=== PATIENT | female | born 1965 | race Hispanic/Latino ===

== ENCOUNTER 2020-07-07 05:54 | Day surgery (SDC) | payer MEDICARE ==
[~2020-07-07] VITALS: Ht 149.9 cm; Wt 181.4 kg
[~2020-07-07 05:54] MED LIST: HYDR-4068 PO; NAPR1TAB28 PO
[2020-07-07] MEDS ORDERED: SODIUM CHLORIDE 0.9% 1000ML 1,000 ML IV ONE (06:17)
[2020-07-07 06:30] VITALS: BP 164/83
[2020-07-07] MEDS ORDERED: ACET-66 PO (06:43)
[2020-07-07] MEDS ORDERED: PROPOFOL 10 MG/ML 20ML VIAL IV ONE (08:06)
[2020-07-07] MEDS ORDERED: LIDOCAINE HCL 1% 20 ML VIAL ONE (08:06)
[2020-07-07 08:20] VITALS: BP 108/74
[2020-07-07 08:25] VITALS: BP 117/76
[2020-07-07 08:30] VITALS: BP 119/80
[2020-07-07 09:00] VITALS: BP 120/90
== END 2020-07-07 09:00 | disposition home or self-care (01) ==
LOC: ENDO 05:54 → DAH 05:54 → ENDO 09:00
PROVIDERS: ATTEND Internal Medicine Gastroenterology
DX: R14.0 Abdominal distension (gaseous) (principal); Z20.822 Contact with and (suspected) exposure to COVID-19; K29.50 Unspecified chronic gastritis without bleeding; K21.9 Gastro-esophageal reflux disease without esophagitis; G47.30 Sleep apnea, unspecified; F41.9 Anxiety disorder, unspecified; E66.01 Morbid (severe) obesity due to excess calories; F32.9 Major depressive disorder, single episode, unspecified; A04.8 Other specified bacterial intestinal infections; Z79.899 Other long term (current) drug therapy; Z98.890 Other specified postprocedural states
CPT/HCPCS: 43239; A4215; A4221; A4222; A4223; A4606; A4620; A4657; A4663; C9803; J2704; J7030; U0003

== ENCOUNTER → 2020-07-09 | Outpatient (CLI) | payer MEDICARE ==
[~2020-07-09] MED LIST changes: +ACET-66 PO
== END | disposition home or self-care (01) ==
LOC: RAH 07:52
PROVIDERS: ATTEND Internal Medicine Gastroenterology
DX: K76.0 Fatty (change of) liver, not elsewhere classified (principal); R10.13 Epigastric pain
CPT/HCPCS: 76700

== ENCOUNTER 2020-07-15 14:03 | Emergency (ER) | payer MEDICARE ==
[2020-07-15] MEDS ORDERED: HYDROCODONE/ACETAMINOPHEN 10/325 MG TAB ONE (14:28)
== END 2020-07-15 18:29 | disposition home or self-care (01) ==
LOC: EDH 14:03
DX: M25.572 Pain in left ankle and joints of left foot (principal); I10 Essential (primary) hypertension; Z88.0 Allergy status to penicillin; W05.0XXA Fall from non-moving wheelchair, initial encounter; Y93.89 Activity, other specified; Y92.89 Other specified places as the place of occurrence of the external cause; Y99.8 Other external cause status
CPT/HCPCS: 73560; 73562; 73610; 73630

== ENCOUNTER 2024-06-02 09:38 | Emergency (ER) | payer MEDICARE ==
[~2024-06-02] VITALS: Ht 149.9 cm; Wt 181.4 kg
[~2024-06-02 09:38] MED LIST changes: +METO-296 PO; +POLY17PO4 PO
--- NOTE | 2024-06-02 09:58 | ERN ---
General Chief Complaint: Abdominal Pain Stated Complaint: ABDOMINAL PAIN Time Seen by MD: 09:41 Source: patient History of Present Illness Initial Comments PATIENT IS A 59-YEAR-OLD FEMALE COMING IN TO BE EVALUATED FOR LEFT FLANK PAIN. PATIENT DOES STATE THAT THE PAIN BEGAN A COUPLE OF DAYS AGO. SHE ALSO STATES THAT HE HAS HAD TWO DAYS OF NOT BEEN ABLE TO DEFECATE COMPLETELY. NO FEVERS NO CHILLS NO NAUSEA NO VOMITING. Allergies: Coded Allergies: piperacillin (Verified Allergy, Severe, HIVES, 06/20/16) tazobactam (Verified Allergy, Severe, HIVES, 06/20/16) Home Meds Active Scripts Metoclopramide HCl (Reglan) 10 Mg Tablet, 10 MG PO QID, #120 TAB 2 Refills Prov:LUIS A NAVARRETE Sr., MD 07/14/23 Polyethylene Glycol 3350 (Miralax) 17 Gram Powd.pack, 17 GM PO DAILY for constipation, #30 PACKET 2 Refills Prov:LUIS A NAVARRETE Sr., MD 07/14/23 Reported Medications Acetaminophen (Tylenol) 500 Mg Tab, 500 MG PO AD, TAB 07/07/20 Naproxen Na-Diphenhydramin HCl (Aleve Pm Caplet) 1 Each Tablet, 1 EACH PO HSPRN PRN for SLEEP, TAB 08/19/16 Hydrocodone/Acetaminophen (Hydrocodon-Acetaminophn 10-325) 1 Each Tablet, 1 TAB PO TID, TAB 06/20/16 Past Medical History Past Medical History: Other Medical History Other: HYDROCODONE FOR RT HIP PAIN, chronic pain, scoliosis, wheel chair dependent Past Surgical History: Other Surgical History Other: RT HIP, BACK, BILATERAL FEET and legs Family History Family History: Negative Social History Social History: Negative, Lives with family Female( History) History: Not Applicable ROS Dictation CONSTITUTIONAL: NO CHILLS, NO FEVER, NO WEAKNESS, NO DIAPHORESIS, NO MALAISE. HEAD/FACE: NO SIGNS OF TRAUMA. EENT: NO EYE PAIN, NO BLURRED VISION, NO TEARING, NO DOUBLE VISION, NO EAR PAIN, NO EAR DISCHARGE, NO NOSE PAIN, NO NASAL CONGESTION, NO THROAT PAIN, NO THROAT SWELLING, NO MOUTH PAIN. RESPIRATORY: NO COUGH, NO ORTHOPNEA, NO SOB, NO STRIDOR, NO WHEEZING. CARDIOVASCULAR: NO CHEST PAIN, NO EDEMA, NO PALPITATIONS, NO SYNCOPE. GASTROINTESTINAL/ABDOMINAL: ABDOMINAL PAIN, NO CONSTIPATION, NO DIARRHEA, NO NAUSEA, NO VOMITING. GENITOURINARY: NO ABNORMAL DISCHARGE, NO DYSURIA, NO FREQUENT URINATION, NO HEMATURIA. NO COMPLAINTS OF PAIN IN THE GENITALS. MUSCULOSKELETAL: NO BACK PAIN, NO GOUT, NO JOINT PAIN, NO JOINT SWELLING, NO MUSCLE PAIN, NO MUSCLE STIFFNESS, NO NECK PAIN. INTEGUMENTARY: NO CHANGE IN COLOR, NO CHANGE IN HAIR/NAILS, NO DRYNESS, NO LESION, NO LUMPS, NO RASH. NEUROLOGICAL/PSYCH: NO ANXIETY, NOT DEPRESSED, NO EMOTIONAL PROBLEM, NO HEADACHE, NO NUMBNESS, NO PRE-EXISTING DEFICIT, NO HISTORY OF SEIZURES, NO TREMORS, NO WEAKNESS. HEMATOLOGIC/LYMPHATIC: NOT ANEMIC, NO HISTORY OF BLOOD CLOTS, NO APPARENT BLE EDING, NO BRUISING, GLANDS NOT SWOLLEN. ALL SYSTEMS NEGATIVE, EXCEPT NOTED. Physical Exam Physical Exam Dictation VITAL SIGNS: REVIEWED. GENERAL APPEARANCE: ALERT, ORIENTED X3, NO ACUTE DISTRESS, OBESE. HEAD AND FACE: NON-TRAUMATIC. EYES: PERRL, PINK CONJUNCTIVAS, EYELID NO TRAUMA, ANTERIOR CHAMBER CLEAR. EARS: PINNAS INTACT AND NO SIGNS OF TRAUMA OR ERYTHEMA. EAR CANALS CLEAR AND NO DISCHARGE. TMS NO ERYTHEMA. NOSE: NO DISCHARGE, NO BLEEDING. OROPHARYNX: MOUTH NORMAL, TEETH NO CARIES, TONGUE PINK. PHARYNX CLEAR, NO ERYTHEMA. TONSILS NO EXUDATES, NO ABSCESSES NOTED. MUCOUS MEMBRANE MOIST. NECK: SUPPLE, NON-TENDER, NO THYROMEGALY, NO MASSES, NO JVD, NO BRUITS. BREAST: DEFERRED. CHEST: NO TENDERNESS, NO CREPITUS, NO PARADOXICAL MOVEMENT, NO RETRACTIONS. LUNGS: CLEAR, WELL-VENTILATED, SYMMETRIC, NO RALES, NO WHEEZING, NO RHONCHI, NO STRIDOR, GOOD BREATH SOUNDS BILATERALLY. HEART: REGULAR RATE, REGULAR RHYTHM, NO MURMUR, NO GALLOPS. VASCULAR: NO PERIPHERAL EDEMA. ABDOMEN: SOFT, POSITIVE BOWEL SOUNDS, NONDISTENDED, NO GUARDING, LOWER LEFT QUADRANT TENDER, NO REBOUND, NO MASSES NO HEPATOMEGALY, NO SPLENOMEGALY, NO MORAN'S SIGN, NO HERNIAS. RECTAL: DEFERRED. GENITAL: DEFERRED. NEUROLOGICAL: NORMAL SPEECH, GROSS MOTOR FUNCTION INTACT, GROSS SENSORY FUNCTION INTACT. MUSCULOSKELETAL: NECK NONTENDER, FULL RANGE OF MOTION, BACK NONTENDER, FULL RANGE OF MOTION. EXTREMITIES: NONTENDER, FULL RANGE OF MOTION. SKIN: COLOR PINK, DRY, NO TURGOR, NO RASH, NO LACERATIONS, NO ABRASIONS, NO CONTUSIONS. LYMPHATICS: DEFERRED. Results Laboratory and Microbiology Lab and Micro Result Laboratory Tests Test 06/02/24 09:59 06/02/24 11:27 White Blood Count 14.2 K/uL (4.8-10.8) H Red Blood Count 4.71 MIL/uL (4.00-5.50) Hemoglobin 13.4 g/dL (12.0-16.0) Hematocrit 42.4 % (36-48) Mean Corpuscular Volume 90.0 fL (79-99) Mean Corpuscular Hemoglobin 28.5 pg (27.0-33.0) Mean Corpuscular Hemoglobin Concent 31.6 g/dL (32.0-36.0) L Red Cell Distribution Width 13.7 % (11.0-15.5) Platelet Count 167 K/uL (130-400) Mean Platelet Volume 12.1 fL (7.5-10.5) H Immature Granulocyte % (Auto) 0.5 % (0-1) Neutrophils (%) (Auto) 80.0 % (40.0-77.0) H Lymphocytes (%) (Auto) 14.6 % (21.0-51.0) L Monocytes (%) (Auto) 4.3 % (3.0-13.0) Eosinophils (%) (Auto) 0.4 % (0.0-8.0) Basophils (%) (Auto) 0.2 % (0.0-5.0) Neutrophils # (Auto) 11.4 K/uL (1.8-7.7) H Lymphocytes # (Auto) 2.1 K/uL (1.0-4.8) Monocytes # (Auto) 0.6 K/uL (0.1-1.0) Eosinophils # (Auto) 0.05 K/uL (0.00-0.70) Basophils # (Auto) 0.03 K/uL (0.00-0.20) Absolute Immature Granulocyte (auto 0.07 K/uL (0-1) Nucleated Red Blood Cells 0.0 % (0.0-0.19) Sodium Level 135 mmol/L (136-145) L Potassium Level 3.6 mmol/L (3.5-5.1) Chloride Level 100 mmol/L (101-111) L Carbon Dioxide Level 31 mmol/L (21-32) Blood Urea Nitrogen 5 mg/dL (7-18) L Creatinine 0.3 mg/dL (0.5-1.0) L Glomerular Filtration Rate Calc 124 mL/min (>90) Random Glucose 83 mg/dL (70-105) Total Calcium 9.1 mg/dL (8.5-10.1) Urine Color LIGHT-YELLOW (YELLOW) Urine Appearance HAZY (CLEAR) Urine pH 7.0 (5.0-8.0) Urine Specific Sproul 1.013 (1.001-1.031) Urine Protein NEGATIVE mg/dL (NEGATIVE) Urine Glucose (UA) NEGATIVE mg/dL (NEGATIVE) Urine Ketones 60 mg/dL (NEGATIVE) H Urine Occult Blood NEGATIVE (NEGATIVE) Urine Nitrate NEGATIVE (NEGATIVE) Urine Bilirubin NEGATIVE mg/dL (NEGATIVE) Urine Urobilinogen 0.2 mg/dL (0.2-1.0) Urine Leukocyte Esterase NEGATIVE Jaelyn/uL Urine RBC 0-1 /HPF (0-1) Urine WBC 0-1 /HPF (0-1) Urine Squamous Epithelial Cells FEW /HPF (0-2) Urine Bacteria None /HPF (None Seen) Labs Reviewed?: Yes EKG/XRAY/US/CT/MRI CT Scan Comment [id number] [address] IMAGING REPORT Signed PATIENT: LM LEIJA MR#: [id number] : 1965 SEX: F AGE: 59 LOCATION: [facility] ORDER 0 STATUS: REG REPORT#: [id number] SERVICE 9 REASON: LEFT FLANK PAIN ORDERING PHYSICIAN: AJAY REAL MD PROCEDURE: ABD PEL WO - CT ABDOMEN/PELVIS W/O CONTRAST CT abdomen pelvis without contrast History: Pain COMPARISON: None Technique: Routine helical scanning at 5mm collimation through the abdomen and pelvis was performed after oral and intravenous contrast. CT Dose Index (CTDI): mGy Dose Length Product (DLP): total mGy-cm Findings: The lung bases are clear. The liver, gallbladder, spleen, pancreas, adrenal glands and kidneys are normal in appearance. No pathologic lymphadenopathy is evident. The intestinal gas pattern shows no evidence of dilatation to suggest obstruction or adynamic ileus. There is no evidence of constipation and no bowel wall lesions are noted to suggest neoplasm. There is diverticulosis of the colon, particularly involving the sigmoid and distal descending. In addition, there are acute inflammatory changes to suggest acute diverticulitis of the mid to distal descending. There is no evidence There is no evidence of pneumoperitoneum. The appendix is unremarkable. The pelvic viscera are normal in CT appearance. The perirectal fat planes are clear. The visualized osseous elements are normal for the patient's age. IMPRESSION: Acute mid to distal descending colon diverticulitis. No evidence of perforation. DICTATED BY: AUGUSTINE ENRIQUEZ MD DATE: 06/02/241101 ELECTRONICALLY SIGNED BY: AUGUSTINE ENRIQUEZ MD DATE: 06/02/241106 [facility] MDM: DIFFERENTIAL DIAGNOSIS: DIVERTICULITIS, ABDOMINAL PAIN, PATIENT IS A 59-YEAR-OLD FEMALE COMING IN TO BE EVALUATED FOR LEFT LOWER ABDOMINAL PAIN. ON PHYSICAL EXAM THE PAIN IS LOCALIZED TO THE LEFT LOWER QUADRANT AREA. CT DISCLOSE A DIVERTICULITIS. PATIENT WILL BE DISCHARGED WITH ORAL ANTIBIOTICS. I ADVISED HER APPROPRIATE FOLLOW UP WITH PCP IN 1-2 DAYS. ED Course Orders Procedure Category Date Status Time Cbc With Differential LAB 06/02/24 Complete 09:49 Basic Metabolic Panel LAB 06/02/24 Complete 09:49 Urinalysis LAB 06/02/24 Complete W/Microscopic 09:49 Ct Abdomen/Pelvis W/O CT 06/02/24 Resulted Contrast 09:50 Levofloxacin 250 PHA 06/02/24 Verified Mg/D5w 50ml (Levaquin 11:51 Vital Signs Date Time Temp Pulse Resp B/P (MAP) Pulse Ox O2 Delivery O2 Flow Rate FiO2 06/02/24 11:34 98.2 82 16 147/75 98 Room Air* 0 21 06/02/24 09:40 98.2 80 16 151/76 98 Room Air 0 06/02/24 09:40 98.2 80 16 151/76 98 Room Air* 0 21 DX & DISP Disposition: Discharge Departure Impression: Primary Impression: Diverticulitis Condition: Stable Scripts Metronidazole (Metronidazole) 500 Mg Tablet 1 TAB PO TID for 10 Days, #30 TAB 0 Refills Prov: AJAY REAL MD 06/02/24 Ciprofloxacin HCl (Cipro) 500 Mg Tablet 1 TAB PO BID for 10 Days, #20 TAB 0 Refills Prov: AJAY REAL MD 06/02/24 Additional Instructions: FOLLOW-UP WITH PRIMARY CARE PROVIDER IN 1 TO 2 DAYS. TAKE MEDICATIONS DIRECTED HERE IN THE EMERGENCY ROOM. OKAY TO CONTINUE HOME MEDICATIONS UNLESS OTHERWISE DISCUSSED DURING YOUR VISIT IN THE EMERGENCY ROOM TODAY. RETURN TO YOUR NEAREST EMERGENCY ROOM IF SYMPTOMS WORSEN OR IF THERE IS NO IMPROVEMENT. CALL 911 IF YOU NEED IMMEDIATE ASSISTANCE. TAKE TYLENOL [id number] NEEDED AND IF NO CONTRAINDICATIONS ARE PRESENT. INCREASE ORAL HYDRATION. A WOUND CULTURE OR URINE CULTURE WAS ORDERED HERE IN THE EMERGENCY ROOM DEPARTMENT PLEASE FOLLOW-UP WITH PRIMARY CARE PROVIDER AND ADVISE THEM TO GET REPEAT PORTS FROM OUR FACILITY. IF YOU HAD ANY KIRK WRAP/SPLINTS THAT WERE APPLIED HERE, PLEASE DO NOT REMOVE THEM UNTIL YOU SEE YOUR PRIMARY CARE OR SPECIALTY. Referrals: Referrals: LINDA FAUSTIN MD (PCP) TRAY GRIMALDO MD Time of Disposition: 11:53 AJAY REAL MD Jun 02, 2024 09:58
[2024-06-02 10:08] LABS: BASOPHILS # (AUTO) 0.03 K/uL (0.00-0.20); BASOPHILS % (AUTO) 0.2 % (0.0-5.0); EOSINOPHILS # (AUTO) 0.05 K/uL (0.00-0.70); EOSINOPHILS % (AUTO) 0.4 % (0.0-8.0); HEMATOCRIT 42.4 % (36-48); IMMATURE GRANULOCYTE ABSOLUTE 0.07 K/uL (0-1); LYMPHOCYTES # (AUTO) 2.1 K/uL (1.0-4.8); LYMPHOCYTES % (AUTO) 14.6 % (21.0-51.0); MEAN CORPUSCULAR HEMOGLOBIN 28.5 pg (27.0-33.0); MEAN CORPUSCULAR HGB CONC 31.6 g/dL (32.0-36.0); MONOCYTES # (AUTO) 0.6 K/uL (0.1-1.0); MONOCYTES % (AUTO) 4.3 % (3.0-13.0); NEUTROPHILS # (AUTO) 11.4 K/uL (1.8-7.7); PLATELET COUNT (AUTO) 167 K/uL (130-400); RED BLOOD CELL COUNT(AUTO) 4.71 MIL/uL (4.00-5.50); RED CELL DISTRIBUTION WIDTH 13.7 % (11.0-15.5); WHITE BLOOD COUNT (AUTO) 14.2 K/uL (4.8-10.8)
[2024-06-02 10:16] LABS: CREATININE 0.3 mg/dL (0.5-1.0); POTASSIUM 3.6 mmol/L (3.5-5.1)
--- NOTE | 2024-06-02 11:07 | HMCIMG ---
CT abdomen pelvis without contrast History: Pain COMPARISON: None Technique: Routine helical scanning at 5mm collimation through the abdomen and pelvis was performed after oral and intravenous contrast. CT Dose Index (CTDI): mGy Dose Length Product (DLP): total mGy-cm Findings: The lung bases are clear. The liver, gallbladder, spleen, pancreas, adrenal glands and kidneys are normal in appearance. No pathologic lymphadenopathy is evident. The intestinal gas pattern shows no evidence of dilatation to suggest obstruction or adynamic ileus. There is no evidence of constipation and no bowel wall lesions are noted to suggest neoplasm. There is diverticulosis of the colon, particularly involving the sigmoid and distal descending. In addition, there are acute inflammatory changes to suggest acute diverticulitis of the mid to distal descending. There is no evidence There is no evidence of pneumoperitoneum. The appendix is unremarkable. The pelvic viscera are normal in CT appearance. The perirectal fat planes are clear. The visualized osseous elements are normal for the patient's age. IMPRESSION: Acute mid to distal descending colon diverticulitis. No evidence of perforation.
[2024-06-02 11:41] LABS: APPEARANCE,URINE HAZY (CLEAR); BILIRUBIN,URINE NEGATIVE (NEGATIVE); COLOR,URINE LIGHT-YELLOW (YELLOW); GLUCOSE, URINE (UA) NEGATIVE (NEGATIVE); KETONES,URINE 60 mg/dL (NEGATIVE); LEUKOCYTE ESTERASE ,URINE NEGATIVE Leu/uL (NEGATIVE); MUCUS,URINE RARE LPF (None Seen); NITRATE,URINE NEGATIVE (NEGATIVE); OCCULT BLOOD,URINE NEGATIVE (NEGATIVE); PROTEIN,URINE NEGATIVE (NEGATIVE); RBC,URINE 0-1 /HPF (0-1); SQUAMOUS EPITHELIAL CELL,UR FEW /HPF (0-2); UROBILINOGEN,URINE 0.2 mg/dL (0.2-1.0); WBC,URINE 0-1 /HPF (0-1)
[2024-06-02] MEDS ORDERED: levoFLOXacin 250 MG/D5W 50ML 50 ML IV STA (11:51)
[2024-06-02] MEDS ORDERED: CIPR-278 PO (11:54)
[2024-06-02] MEDS ORDERED: METR-172 PO (11:54)
[2024-06-02 12:55] VITALS: BP 135/77; PULSE 79; RESP 18; TEMP 98.1; O2SAT 98
[2024-06-02] MEDS: levoFLOXacin 500 MG TABLET PO SCH (12:55)
== END 2024-06-02 12:56 | disposition home or self-care (01) ==
LOC: EDH 09:38
DX: K57.32 Diverticulitis of large intestine without perforation or abscess without bleeding (principal); Z88.0 Allergy status to penicillin; Z79.899 Other long term (current) drug therapy
CPT/HCPCS: 36415; 74176; 80048; 81001; 85025; 99284; J1956